=== PATIENT | female | born 1975 | race African-American/Black ===

== ENCOUNTER 2018-04-10 08:44 | Emergency (ER) | payer OTHER ==
[~2018-04-10] VITALS: Ht 175.3 cm; Wt 65.8 kg
--- NOTE | 2018-04-10 08:45 | NUR ---
BIBRA 879 C/O N/V SINCE THIS AM. ALSO C/O CHEST TIGHTNESS. VISITED ER 2 DAYS AGO FOR SAME REASON. A/OX 4, BREATHING EVEN AND UNLABORED. NO SOB, NAD, VITALS STABLE. SAFETY AND COMFORT MEASURES IN PLACE. AWAITING MD ORDERS.
[2018-04-10] MEDS ORDERED: ONDANSETRON HCL/PF 4 MG/2 ML VIAL ONE (08:54)
--- NOTE | 2018-04-10 08:55 | NUR ---
NEW IV STARTED ON RAC, 18G. BLOOD DRAWN AND SENT TO LAB.
[2018-04-10] MEDS ORDERED: IV NS 0.9% 1,000 ML BAG IV ONE (09:00)
[2018-04-10] MEDS ORDERED: ONDANSETRON HCL/PF 4 MG/2 ML VIAL IV ONE (09:00)
[2018-04-10 09:09] LABS: BASOPHILS # (AUTO) 0.1 /CMM (0.0-0.2); BASOPHILS % (AUTO) 0.6 % (0.0-2.0); EOSINOPHILS % (AUTO) 0.9 % (0.0-6.0); HEMATOCRIT 42 % (33-45); HEMOGLOBIN 14.1 g/dL (11.5-14.8); LYMPHOCYTES # (AUTO) 1.8 /CMM (0.8-4.8); LYMPHOCYTES % (AUTO) 17.8 % (20.0-44.0); MEAN CORPUSCULAR HEMOGLOBIN 32 PG (26.0-33.0); MEAN CORPUSCULAR HGB CONC 33 g/dl (31.0-36.0); MEAN CORPUSCULAR VOLUME 96 fL (82-100); MONOCYTES # (AUTO) 0.3 /CMM (0.1-1.30); MONOCYTES % (AUTO) 2.9 % (2.0-12.0); NEUTROPHILS # (AUTO) 7.8 /CMM (1.8-8.9); NEUTROPHILS % (AUTO) 77.8 % (43.0-81.0); PLATELET COUNT (AUTO) 250 /CMM (150-450)
[2018-04-10 09:18] LABS: CALCIUM, SERUM 9.5 mg/dL (8.5-10.1); CREATININE 1.3 mg/dL (0.6-1.3); POTASSIUM 3.4 mmol/L (3.5-5.1)
[2018-04-10 09:24] LABS: ALBUMIN 4.5 g/dL (3.4-5.0); BILIRUBIN,DIRECT 0.1 mg/dL (0.0-0.2); BILIRUBIN,TOTAL 0.7 mg/dL (0.2-1.0); TOTAL PROTEIN, SERUM 8.5 g/dL (6.4-8.2)
[2018-04-10] MEDS ORDERED: MORPHINE SULFATE INJ 2 MG/ML DISP.SYRIN IV ONE (09:30)
[2018-04-10] MEDS ORDERED: LORAZEPAM INJ 2 MG/ML VIAL IV ONE ×2 (09:30→11:00)
[2018-04-10] MEDS ORDERED: LORAZEPAM INJ 2 MG/ML VIAL ONE ×2 (09:51→10:52)
--- NOTE | 2018-04-10 12:07 | NUR ---
PER DR. NGUYEN, ADMINISTERED 2ND LITER OF NS. IV NS STARTED ON RAC, 18G, IVPB, END TIME 1307
[2018-04-10 12:58] VITALS: BP 142/91
--- NOTE | 2018-04-10 13:10 | NUR ---
IV removed. Catheter intact and site benign. Pressure and 4x4 applied to site. No bleeding noted. Patient discharged to home in stable condition. Written and verbal after care instructions given. Patient verbalizes understanding of instruction.
--- NOTE | 2018-04-10 13:40 | NUR ---
PATIENT HAS BEEN WAITING IN BED WITH FAMILY SINCE BEING DISCHARGED EARLIER. 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 HOWEVER, PATIENT IS IN NO DISTRESS, VSS, DENIES ANY HI/SI AND DENIES DRUG USE OTHER THAN MARIJUANA. CLEARED FOR DISCHARGE BY MD. PATIENT/FAMILY AGREED TO LEAVE AT THIS TIME. ASSISTED INTO WHEELCHAIR AND ASSISTED TO CAR. PATIENT LEFT WITH FAMILY IN CAR.
== END 2018-04-10 13:09 | disposition home or self-care (01) ==
LOC: ER 08:47
DX: F41.9 Anxiety disorder, unspecified (principal); R07.89 Other chest pain; R10.9 Unspecified abdominal pain; F17.200 Nicotine dependence, unspecified, uncomplicated; F10.10 Alcohol abuse, uncomplicated; Y90.9 Presence of alcohol in blood, level not specified; Z60.2 Problems related to living alone; Z88.6 Allergy status to analgesic agent
CPT/HCPCS: 36415; 71045; 80048; 80076; 83690; 84484; 84703; 85025; 85378; 93005; 96361; 96374; 96375; 96376; 99285; A4606; J2060 ×2; J2405; J7030 ×2; Z7610